=== PATIENT | female | born 1985 | race Caucasian/White ===

== ENCOUNTER 2018-03-17 14:42 | Outpatient (CLI) | payer OTHER | END 2018-03-17 15:50 | disposition home or self-care (01) | LOC: SONOGRAMA 14:42 | DX: R10.2 Pelvic and perineal pain (principal) ==

== ENCOUNTER 2019-02-14 13:08 | Inpatient (IN) | payer OTHER ==
[~2019-02-14] VITALS: Ht 170.2 cm; Wt 78.5 kg
[2019-02-15] MEDS ORDERED: CIPROFLOXACIN500 MG PO (08:03)
[2019-02-15] MEDS ORDERED: METRONIDAZOLE500 MG PO (08:03)
[2019-02-15] MEDS ORDERED: NABUMETONE750 MG PO (08:04)
== END 2019-02-20 11:25 | disposition home or self-care (01) | DRG 743 ==
LOC: OB/GYN 13:08
PROVIDERS: ADMIT Specialist
PROC: 0UT00ZZ Resection of Right Ovary, Open Approach (ICD-10-PCS; 2019-02-15)
PROC: 0UT50ZZ Resection of Right Fallopian Tube, Open Approach (ICD-10-PCS; principal; 2019-02-15 09:45)
DX: N70.93 Salpingitis and oophoritis, unspecified (principal)